=== PATIENT | female | born 1970 | race Caucasian/White ===

== ENCOUNTER 2024-03-29 15:50 | Emergency (ER) | payer OTHER, SELFPAY ==
--- OUTSIDE RECORDS SUMMARY | 2024-03-29 15:52 | XMS_ITS | Clinical Summary ---
Author Organization [facility] Address [place], [place] [address] Care Team Providers Care Physician'S Aide Name Role Phone Alisa Montesinos MD Primary Care Provide r Allergies Active Allergy Reactions Criticality Noted Date Comments Gluten Nausea And Vomiting 07/17/2017 Latex Itching 08/09/2019 Metformin Diarrhea 03/02/2023 Medications multivitamin (MVI) tablet Take 1 Tablet by mouth once daily. 0 1 Active blood-glucose meterIndication s:Type 2 diabetes mellitus without complication, without long-term current use of insulin (HC) Dispense meter, test strips, lancets covered by pt ins. E11.9 NIDDM type II - Test 1 time/day 1 Each 3 Active lancetsIndicati ons:Type 2 diabetes mellitus without complication, without long-term current use of insulin (HC) As directed. Test 1 times per day. 100 Each 3 4 Active blood sugar diagnostic (Blood Glucose Test) stripIndication s:Type 2 diabetes mellitus without complication, without long-term current use of insulin (HC) Test 1 times per day. 100 Each 3 4 Active clobetasol cream 0.05% (TEMOVATE) 0.05 % creamIndication s:Eczema of both external ears Apply topically to affected area(s) two times daily. 45 g 3 4 Active tirzepatide (Mounjaro) 5 mg/0.5 mL penIndications: Type 2 diabetes mellitus without complication, without long-term current use of insulin (HC) Inject 0.5 mL (5 mg) subcutaneous once weekly. 2 mL 11 4 Active tirzepatide (Mounjaro) 2.5 mg/0.5 mL penIndications: Type 2 diabetes mellitus without complication, without long-term current use of insulin (HC) Inject 0.5 mL (2.5 mg) subcutaneous once weekly. 2 mL 4 Active fluocinonide 0.05 TOPICAL (LIDEX) 0.05 % external solutionIndicat ions:Chronic eczema Apply topically to affected area(s) two times daily. 60 mL 3 4 Active clobetasol (TEMOVATE) 0.05 % ointmentIndicat ions:Psoriasis Apply this to any affected areas two times daily for 7 days and as needed for flare-ups 60 g 4 Active Active Problems Problem Noted Date Diagnosed Date Type 2 diabetes mellitus wit hout complication, without long-term current use of insulin 03/09/2022 Eczema of both external ears 03/09/2022 Pterygium eye, left 03/09/2022 HPTH (hyperparathyroidism) 03/09/2022 Cellulitis and abscess of hand 10/23/2020 Cat bite 10/22/2020 Adenomatous colon polyp 05/04/2019 Overview (05/04/2019): Colonoscopy 04/2019 polyp, repeat in 5 years Hepatic steatosis 02/24/2019 Bilateral renal stones 02/24/2019 Overview (02/24/2019): Non obstructive found on CT 02/24/2019 High risk human papilloma virus (HPV) infection of cervix 02/24/2019 Overview (03/09/2019): 02/24/2019 NIL/HPV positive. HPV 16/18- neg Plan: repeat Pap/HPV in 1 year (due 02/2020) Chronic sinusitis 05/23/2016 Celiac sprue 04/23/2015 Menorrhagia with regular cycle 04/05/2015 Iron deficiency anemia, unspecified 01/29/2012 Pre-diabetes 10/18/2008 Cystocele, midline 09/11/2008 Hyperparathyroidism Resolved Problems Problem Noted Date Diagnosed Date Resolved Date Encounter for long-term (cur rent) use of insulin 01/14/2022 01/14/2022 Encounters Date Type Department Care Team Description 01/06/2024 9:20 AM [facility]OSPACE MEDICINE PHYSICIAN Nurse/Clinic Staff Only [facility] [address] [place] [address] Immunization/Injection ; Immunization/Injection 01/06/2024 Travel 01/04/2024 Travel from Last 3 Months Immunizations Name Administration Dates Next Due AMB Influenza, IIV3 (Age >=3 years)(Flu Clinic Only) 12/18/2009 AMB Influenza, IIV4 PF (=>6 mos Flulaval,Fluzone Fluarix)(Flu Clinic Only) 01/07/2019,01/11/2018,01/09/2017, 0 16,01/17/2016,01/11/2015,01/17/2014 COVID-19 vaccine (ForwardMetrics-Bio NTech 30mcg/0.3mL) 12YO+ BIVALENT PF, MDV 01/14/2022 COVID-19 vaccine (Forward[employer]-Bio NTech 30mcg/0.3mL) 12YO+ SELINA-SUCROSE PF, MDV 06/18/2021 COVID-19 vaccine ([employer]-Digital Lumens NTech 30mcg/0.3mL) PF, MDV 10/07/2020,09/11/2020 INFLUENZA, IIV3 PF (AGE >= 6 MO) 01/06/2024 Influenza, IIV3 (Age 6-35 mos) 12/03/2010 Influenza, IIV3 (Age >=3 years) 01/21/20 13,01/15/2012,12/03/2010,12/19/19 10,01/18/2008,01/31/2007,01/19/2006,01/04 Influenza, IIV4 01/07/2023,,01/10/2021,01/04/20 20,01/17/2016,01/11/2015,01/17/2014 Td (Age >=7 Years) 05/31/2000 Tdap 10/18/2020,03/26/2010 Zoster (Shingrix-RZV, recombinant) 11/17/2022, Family History Medical History Relation Name Comments Liver disease Brother younger 4 yr hx alcoholism, unknown specific diagnosis Other Brother younger 4 yr eczema/or psori asis unsure which Cancer Father kidney cancer Heart Disease Father pace maker jaspal teri at 69 Hyperlipidemia Father high choleste rol Asthma Mother age 66 Cancer Mother age 66 at age 66, non-hodgkins lymphoma Celiac disease Mother age 66 Non-Hodgekin Cancer-breast Other Cousin Thyroid Disease Sister younger 8 yr Relation Name Status Comments Brother younger 4 yr Alive Daughter clarissa 2001 Alive Father Alive Mother age 66 age Other Sister younger 8 yr Alive Son lidia 2007 Alive Social History Tobacco Use Types Packs/Day Years Used Date Smoking Tobacco: Former Cigarettes 0.3 31.6 0 03/13/1989 - 10/18/2020 Smokeless Tobacco: Never Tobacco Cessation:Counseling Given: Not Answered Alcohol Use Standard Drinks/Week Comments Not Currently 0 (1 standard drink = 0.6 oz pur e alcohol) occ PHQ-2 Answer Date Recorded PHQ-2 TOTAL SCORE 0 01/14/2022 Social Connections Answer Date Recorded Do you often feel lonely or isolated from those around you? 0 02/28/2023 Financial Resource Strain Answer Date R ecorded Difficulty of Paying Living Expenses 3 02/28/2023 Difficulty of Paying Living Expenses Not on file 02/28/2023 Food Insecurity Answer Date Recorded Do you worry your food will run out before you are able to buy more? 1 02/28/2023 Transportation Needs Answer Date Record ed Does lack of transportation keep you from medica l appointments? 1 02/28/2023 Does lack of transportation keep you from work, meetings or getting things that you need? 1 02/28/2023 Housing Stability Answer Date Recorded What is your housing situation today? 1 02/28/2023 Utilities Answer Date Recorded Do you have trouble paying f or utilities (for example, heat, electricity, water, phone)? 1 02/28/2023 Comments No Sex and Gender Information Value Date Recorded Sex Assigned at Not on file Legal Sex Female 6:22 AM AEROSPACE MEDICINE PHYSICIAN Gender Identity Not on file Sexual Orientation Not on file Occupation Industry Job Start Date Job End Date Not on file Not on file Not on file Not on file Obstetrics History Para Term AB IAB SAB Ectopic Multiple Livin g Live Births 2 2 2 0 0 0 0 0 0 2 2 Date Outcome GA Total Labor Labor/2nd/3rd Weight Sex Type Anes PTL Marga A1 A5 Name Clin Term Living Term Living Last Filed Vital Signs Vital Sign Reading Time Taken Comments Blood Pressure 136/75 08/24/2023 4:29 PM CDT Pulse 82 08/24/2023 4:29 PM CDT Temperature 36.6 C (97.9 F) 03/07/2022 9:35 AM AEROSPACE MEDICINE PHYSICIAN Respiratory Rate 16 03/07/2022 9:35 AM AEROSPACE MEDICINE PHYSICIAN Oxygen Saturation 96% 08/24/2023 4:29 PM CDT Inhaled Oxygen Concentration - - Weight 115.7 kg (255 lb) 08/24/2023 4:29 PM CDT Height 177.2 cm (5' 9.75) 03/02/2023 8:27 AM CS T Body Mass Index 36.85 03/02/2023 8:27 AM AEROSPACE MEDICINE PHYSICIAN Plan of Treatment Upcoming Encounters Date Type Department Care Team (Late st Contact Info) Description 03/30/2024 7:20 AM AEROSPACE MEDICINE PHYSICIAN Ancillary Procedure [facility] [address] [place] [address] 03/30/2024 8:15 AM AEROSPACE MEDICINE PHYSICIAN Office Visit [facility] [address] [place] [address] Alisa Montesinos MD [address] [place] [address] 04/14/2024 8:00 AM AEROSPACE MEDICINE PHYSICIAN Orders Only [address] [address] [place] 05/03/2024 1:30 PM CDT Office Visit [facility] [address] [address] Darby Schuler MD [address] [facility] [address] [place], [place] [address] Health Maintenance Due Date Last Done Comments Hepatitis B series for Diabe chandrika (1 of 3 - 19+ 3-dose series) 1989 Pneumococcal series for age 50+ (1 of 2 - PCV) 1989 Depression screening for age 12+ 01/14/2023 01/14/2022, 12/29/2018, 07/17/2017, Additional history exists COVID-19 vaccine series ( season) 2023 01/14/2022, 06/18/2021, 10/07/2020, Additional history exists BMI (ht and wt on same day) for age 18+ 03/02/2024 03/02/2023, 03/09/2022, 01/14/2022, Additional history exists Mammogram for age 45-75 03/29/2024 03/29/19 24, 03/16/2022, 01/10/2021, Additional history exists Colonoscopy through age 75 05/02/202405/02, 05/03/2019, 05/03/2019 Lipids for age 45-75 02/25/2028 02/24/2023, 01/14/2022, 01/10/2020, Additional history exists Tetanus booster 10/18/2030 10/18/2020, 020 03/2010, 05/31/2000 HIV for age 15-65 Completed 09/15/2006 Pap test for age 21-65 Discontinued , 02/24/2019, 04/05/2015, Additional history exists Tdap Completed 10/18/2020, 03/26/2010 Hepatitis C screening for ag e 18-79 Completed 01/14/2022 Zoster (shingles) series for age 50+ Completed 11/17/2022, 08/13/2022 Influenza for age 50-64 Completed 01/06/20 24, 01/07/2023, 01/14/2022, Additional history exists Procedures Procedure Name Priority Date/Time Associated Diagnosis Comments XR MAMMO BILAT SCREENING Routine 03/29/2023 7:35 AM AEROSPACE MEDICINE PHYSICIAN Visit for screening mammogram LIPID PANEL W REFLEX MEASURED LDL Routine 02/24/2023 7:40 AM AEROSPACE MEDICINE PHYSICIAN Lipid screening ANTI HCV Routine 01/14/2022 9:30 AM AEROSPACE MEDICINE PHYSICIAN Need for hepatitis C screening test COLONOSCOPY DIAGNOSTIC Routine 05/03/2019 9:30 AM CDT LLQ pain Polyp of colon, unspecified part of colon, unspecified type IGNITER CAPPER THIN PREP PAP SCREEN IMAGED Routine 02/24/2019 1:40 PM AEROSPACE MEDICINE PHYSICIAN Cervical cancer screening ANTI HIV 1/2 Routine 09/15/2006 3:43 PM CDT Supervision Of Other Normal from Last 3 Months or Most Recently Relevant to Health Maintenance Results * XR MAMMO BILAT SCREENING (03/29/2023 7:35 AM AEROSPACE MEDICINE PHYSICIAN) Anatomical Region Laterality Modality BREASTS, Breast Left, Breast Right Bilateral Mammography Impressions 03/29/2023 1:35 PM AEROSPACE MEDICINE PHYSICIAN There is no radiographic evidence for malignancy. Recommend annual mammograms. MAMMOGRAM ASSESSMENT: ACR 1 Negative PATIENTS: You will also receive a letter with your examination results in an easy to read format. If you have questions about your results, please contact your referring provider. Narrative 03/29/2023 1:35 PM AEROSPACE MEDICINE PHYSICIAN For Patients: As a result of the Cures Act, medical imaging exams and procedure reports are released immediately into your electronic medical record. You may view this report before your referring provider. If you have questions, please contact your health care provider. XR MAMMO BILAT SCREENING [[id number]] CLINICAL HISTORY: This is an asymptomatic 52 y.o. patient. INDICATION FOR EXAM: Mammogram Screening. TECHNIQUE: CC & MLO views were obtained. This study was evaluated with the assistance of Computer-Aided Detection. COMPARISON FILM: Yes 03/16/22 Novasentis 01/10/21 Novasentis FINDINGS: The breasts have scattered areas of fibroglandular density. There are no dominant masses, suspicious micro calcifications or areas of architectural distortion. us Alisa Montesinos MD MAMMO Final Result * (ABNORMAL) LIPID PANEL W REFLEX MEASURED LDL (02/24/2023 7:40 AM AEROSPACE MEDICINE PHYSICIAN) CHOLESTEROL,TOTAL 199 100 - 199 mg/dL 02/24/2023 1:29 PM AEROSPACE MEDICINE PHYSICIAN [facility] Comment: Cholesterol, Total Reference Ranges Desirable <200 mg/dL Borderline 200-239 mg/dL High >=240 mg/dL TRIGLYCERIDES 167(H) <150 mg/dL 02/24/2023 1:29 PM AEROSPACE MEDICINE PHYSICIAN [facility] HDL CHOLESTEROL 45 >40 mg/dL 1:29 PM AEROSPACE MEDICINE PHYSICIAN [facility] NON-HDL CHOLESTEROL 154(H) <145 mg/dl 02/24/2023 1:29 PM AEROSPACE MEDICINE PHYSICIAN [facility] CHOL/HDL RATIO 4.42 <4.50 02/24/2023 1:29 PM AEROSPACE MEDICINE PHYSICIAN [facility] LDL CHOLESTEROL 121 <=130 mg/dL 02/24/2023 1:29 PM AEROSPACE MEDICINE PHYSICIAN [facility] VLDL CHOLESTEROL 33(H) <=30 mg/dL 02/24/2023 1:29 PM AEROSPACE MEDICINE PHYSICIAN [facility] PROVIDER ORDERED STATUS RANDOM 02/24/2023 1:29 PM AEROSPACE MEDICINE PHYSICIAN [facility] Blood BLOOD SPECIMEN / Unknown Venipuncture / Unknown 02/24/2023 7:40 AM AEROSPACE MEDICINE PHYSICIAN 02/24/2023 7:43 AM AEROSPACE MEDICINE PHYSICIAN us Alisa Montesinos MD CHEMISTRY Final Result [facility] [address] [place] [address], * ANTI HCV (01/14/2022 9:30 AM AEROSPACE MEDICINE PHYSICIAN) HEPATITIS C ANTIBODY Non-React nichole Non-React nichole 01/15/2022 1:59 PM AEROSPACE MEDICINE PHYSICIAN [facility] Comment:Antibodies to HCV no t detected; does not exclude the possibility of exposure to HCV. Blood BLOOD SPECIMEN / Unknown Venipuncture / Unknown 01/14/2022 9:30 AM AEROSPACE MEDICINE PHYSICIAN 01/14/2022 9:35 AM AEROSPACE MEDICINE PHYSICIAN us Ariadna Henry MD SEND OUTS Final Resul t [facility] [address] [place] [address], * COLONOSCOPY DIAGNOSTIC (05/03/2019 9:30 AM CDT) Chandana Middleton MD GI PROCEDURE ORD Final R esult * IGNITER CAPPER THIN PREP PAP SCREEN IMAGED (02/24/2019 1:40 PM AEROSPACE MEDICINE PHYSICIAN) Case Report Gynecologic Cytology Report Case: [id number] Authorizing Provider: Nora Duron MD Collected: 02/24/2019 1340 Ordering Location: [facility] Received: 02/24/2019 1340 Clinic First Screen: Kailee Sanchez Rescreen: Jim Stacy Pathologist: Nataly Hernández MD Specimen: IGNITER CAPPER ThinPrep Vial Screening, Cervical 03/07/2019 4:07 PM AEROSPACE MEDICINE PHYSICIAN [facility] INTERPRETATION/ RESULT NEGATIVE FOR INTRAEPITHELIAL LESION OR MALIGNANCY (NIL) (none) 03/07/2019 4:07 PM AEROSPACE MEDICINE PHYSICIAN [facility] R Endometrial cells in a woman more than 45 years of age. 03/07/2019 4:07 PM AEROSPACE MEDICINE PHYSICIAN [facility] EDUCATIONAL NOTES & SUGGESTIONS Endometrial cells after the age of 45, particularly out of phase or after menopause, may be associated with benign endometrium, hormonal alterations and less commonly with endometrial uterine abnormalities. Endometrial cells correlate with the menstrual history provided. 03/07/2019 4:07 PM AEROSPACE MEDICINE PHYSICIAN [facility] SPECIMEN ADEQUACY Satisfactory for evaluation Endocervical component present 03/07/2019 4:07 PM AEROSPACE MEDICINE PHYSICIAN [facility] HPV REQUEST HPV and PAP 03/07/2019 4:07 PM AEROSPACE MEDICINE PHYSICIAN [facility] Date of LMP 02/21/2019 03/07/2019 4:07 PM AEROSPACE MEDICINE PHYSICIAN [facility] Last Pap Date 04/05/15 03/07/2019 4:07 PM AEROSPACE MEDICINE PHYSICIAN [facility] Last Pap Result NIL 0 4:07 PM AEROSPACE MEDICINE PHYSICIAN [facility] Abnormal Pap or [place] Bx in last 5 years Yes 03/07/2019 4:07 PM AEROSPACE MEDICINE PHYSICIAN [facility] Menstrual Status Irregular Periods 03/07/2019 4:07 PM [facility] [place] Bx Done Today No 03/07/2019 4:07 PM [facility] Additional Information None given 03/07/2019 4:07 PM [facility] Comment: Cytology is screened at [facility] - [address], [place] [address] and [facility] - [address] [place] [address] [place] [address] and [facility] - [address] [place] [address] [facility] - [address], [place] [address] Automated Review Successful 03/07/2019 4:07 PM [facility] Comment:Specimen processed s uccessfully by automated network control supervisor device, ThinPrep Imaging System, [employer] ANCILLARY TESTING IGNITER CAPPER HPV Ordered, Please see separate report 03/07/2019 4:07 PM [facility] Note The pap test is a screening technique, not a diagnostic procedure. It is used primarily to screen for squamous cancers and precursor lesions. Published studies have shown that it is subject to both false negative and false positive results. The pap test should not be used as the sole means to diagnose or exclude pre-malignant and malignant lesions. 03/07/2019 4:07 PM [facility] Other (Cervical) Non-Blood / Unknown 02/24/2019 1:40 PM AEROSPACE MEDICINE PHYSICIAN 02/24/2019 1:40 PM AEROSPACE MEDICINE PHYSICIAN us Nora Duron MD PATHOLOGY/CYTOLOGY Final Re sult [facility] [address] [place] [address], [place] * ANTI HIV 1/2 (09/15/2006 3:43 PM CDT) ANTI HIV 1/2 Non-reacti ve [facility] Blood specimen (specimen) BLOOD SPECIMEN / Unknown 09/15/2006 3:43 PM CDT 09/15/2006 3:37 PM CDT Sue Villalobos [employer] SEND OUTS Final Result [facility] INTERNAL ZIP [address] [address] from Last 3 Months or Most Recently Relevant to Health Maintenance Insurance [place]ES [id number] [employer] [id number] Advance Directives * Full Code (Latest Code Status on File) Date Activated Date Inactivated Comments 10/23/2020 12:03 AM 10/23/2020 1:53 PM Question Answer Comments Code Status Discussion: Discussed * Full Code Date Activated Date Inactivated Comments 08/10/2019 8:30 AM 08/10/2019 5:44 PM Question Answer Comments Code Status Discussion: Discussed Care Teams Physician'S Aide Relationship Specialty Start Date End Date Alisa Montesinos MD [address] [place] [address] PCP - General 09/11/08
[2024-03-29 16:00] VITALS: BP 158/102; PULSE 92; RESP 20; TEMP 37; O2SAT 96; BMI 36.2
--- NOTE | 2024-03-29 16:06 | ED.GENADULT ---
HPI - General Adult General Chief complaint: Head Injury/Pain Stated complaint: Fell backwards at work, hit head, no LOC Time Seen by Provider: 03/29/24 16:03 History of Present Illness HPI narrative: Was loading a semi with a pallet javier, she tripped over the javier. Fell backwards and hit head on floor of semi. No LOC. dazed . Had bloody nose after fall , mild headache , pain to posterior head. Also, pain to left jaw. 53-year-old woman presenting to the emergency department with concern of head injury. Was at work and loading or unloading a semi using a Pallet Javier. The Pallet Javier apparently drifted into her track and behind her underwear and she stumbled back over it falling directly back onto her back and striking her head on the semi floor. Does not believe that she lost consciousness. She was discussed of out of it. A initially little unclear what happened. Has intermediate bloody nose. Does have mild headache with some pain in the back of the head. She does have some pain in the left jaw appears to be surrounding the left TMJ. She did not hit this area. Feels like her teeth do not set quite right. Does not have any significant neck pain. Not really with much back pain either. Initially noted that her hands tingle. Related Data Home Medications ?Medication ?Instructions ?Recorded ?Confirmed multivitamin (Daily Multi-Vitamin 1 tab PO DAILY 03/29/24 03/29/24 tablet) tirzepatide 5 mg/0.5 mL 5 mg subcut 03/29/24 subcutaneous pen injector (Mounjaro) Allergies Allergy/AdvReac Type Severity Reaction Status Date / Time gluten AdvReac Intermediate Intolerant Verified 03/29/24 15:59 latex AdvReac Intermediate Itching Verified 03/29/24 15:59 Review of Systems Status of ROS: Reports: 6 or more systems reviewed and unremarkable except as noted in History and below PFSH [facility] Social History Smoking Status: Never smoker How often do you have a drink containing alcohol: never AUDIT-C Alcohol total score: 0 Non-prescribed substance use: denies use Exam Narrative: Exam Narrative: Pleasant. Has bit of dried blood at the tip of her nose. Cranial nerves 2-12 intact. Pupils 3 mm, briskly responsive and equal. Ears bilaterally without external fluid. Psoriatic plaquing noted around the left ear in particular. She is sore to palpation about the left TMJ and surrounding musculature. No defect or discomfort to palpation along the mandible. Oropharynx otherwise appears unremarkable. He had with some mild swelling in the posterior occiput area presumed area of impact. Psoriasis in the area. Does not have midline neck tenderness. Some soreness to palpation in the paracervical musculature. Not with apparent back tenderness palpation. She is breathing easily. Has no pain palpation of the clavicles or shoulders. Well-perfused peripherally. Moving all extremities without difficulty. Appears to be a little confused but does pretty well with serial sevens. Negative Romberg's. Normal point point hand toe heel. Nasal exam does have some swollen mucosa in the lower aspect of the left nares but no active bleeding. Appears to have blood from the left side. No pain to palpation over the facial bones otherwise. Becomes a little tearful toward the end of our initial exam as we are discussing options for evaluation. Const: Vital Signs, click to edit/add: Vital Signs - 24 hr 03/29/24 16:00 03/29/24 18:28 Temperature 98.6 F 98.5 F Pulse Rate [Pulse Oximeter] 92 78 Respiratory Rate 20 18 Blood Pressure [Ri ght Upper Arm] 158/102 H 146/105 H Pulse Oximetry 96 97 Oxygen Delivery Me thod Room Air Room Air Documenting provider has reviewed patient's vital signs: yes Course Vital Signs Vital signs: Initial Vital Signs Temperature 98.6 F 03/29/24 16:00 Temperature Source Temporal Artery Scan 03/29/24 16:00 Pulse Rate 92 03/29/24 16:00 Respiratory Rate 20 03/29/24 16:00 Blood Pressure 158/102 H 03/29/24 16:00 Blood Pressure Mean 120 H 03/29/24 16:00 Blood Pressure Position Sitting 03/29/24 16:00 Pulse Oximetry 96 03/29/24 16:00 Oxygen Delivery Method Room Air 03/29/24 16:00 Vital Signs Temperature 98.6 F 03/29/24 16:00 Pulse Rate 92 03/29/24 16:00 Respiratory Rate 20 03/29/24 16:00 Blood Pressure 158/102 H 03/29/24 16:00 Pulse Oximetry 96 03/29/24 16:00 Oxygen Delivery Method Room Air 03/29/24 16:00 Temperature 98.5 F 03/29/24 18:28 Pulse Rate 78 03/29/24 18:28 Respiratory Rate 18 03/29/24 18:28 Blood Pressure 146/105 H 03/29/24 18:28 Pulse Oximetry 97 03/29/24 18:28 Oxygen Delivery Method Room Air 03/29/24 18:28 Medications Administered Medications: Discontinued Medications Generic Name Dose Route Start Last Admin Trade Name Torsten PRN Reason Stop Dose Admin Ibuprofen 800 mg 03/29/24 17:15 03/29/24 17:25 Ibuprofen 400 Mg Tablet PO 03/29/24 17:16 800 mg ONCE ONE Administration Medical Decision Making MDM Narrative Medical decision making narrative: She is not on blood thinners. This appears to been quite and impact. This appears to been trip and fall event not cardiogenic. She is concerned about potential costs. By nexus criteria I do not think needs neck scan least noting that her head does not hurt very much at this time and appears mentally clear. I would offer though CT imaging of her head. I think most likely has sustained at least a mild concussion. I think the pain in the left jaw is most likely related to tension or spasm in the left TMJ musculature; may have been a partial subluxation. She did have a little bit of a click on the right which is chronic. Ice pack requested. I did independently review CT imaging. There appears to be a nondisplaced skull fracture at the right occipital area. No adjacent bleed appreciated. Did receive a call from radiologist regarding this imaging. See over-read below INDICATION: Fall with trauma to the back of the head COMPARISON: 03/23/2020 CT TECHNIQUE: CT of the head without contrast. FINDINGS: Brain, ventricles, and extra-axial spaces: No acute intracranial hemorrhage. Wise-white differentiation is grossly preserved. Size of the ventricles and sulci appears to be commensurate with age. There are intracranial vascular calcifications. Bones: Acute nondisplaced fracture of the right occipital bone which extends adjacent to the transverse sinus (). Overall mild paranasal sinus mucosal thickening. Visualized mastoid air cells are clear. IMPRESSION: 1. No acute intracranial hemorrhage. 2. Acute nondisplaced fracture of the right occipital bone which extends adjacent to the transverse sinus. 3. Findings discussed via telephone at 2:56 p.m. [place] standard time March 29, [address] Manning. Headache increasing and after discussion of options given ibuprofen. I did call to [facility] spoke to staff there for further advice. My concern is would other imaging might be necessary or management also considering that there is no current apparent bleeding. Recommendations are for CT venogram which we cannot do this facility and would recommend transfer to [facility]. Concern also of course of further TBI evaluation They were unable to see imaging at that time. Returned to discuss this with Ms. Vieyra. She does have significant time spent at [facility] and has specific coverage there. With this information did place a call to [facility]. While awaiting call back also reporting some crunching in her neck with increasing neck pain. The sound might be transmission from skull fracture? Considering with impact that would have caused skull fracture I think it would be prudent to CT her neck. Spoke to Neurosurgery at [facility]. They are able to review these images. Overall reassured. Highly doubt any vascular injury otherwise. Would not repeat imaging as no bleeding at this time. Monitor symptoms. Not recommending neuro checks but maybe a check-in overnight. Provided no further events, okay for discharge. Will reach out tomorrow. I do independently review these images cervical spine CT. Do not appreciate fracture or unusual alignment. Radiology over-read concurs. Remains otherwise well in the emergency department over time of observation Can take up to 800 mg of ibuprofen or up to 1000 mg of acetaminophen per dose. These can be combined. I did speak with neurosurgery at [facility], Dr. Cardenas. Anticipate them reaching out to you tomorrow to arrange next steps in care/evaluation. They have copies of your images in their system. You may go to sleep. Would have somebody check on you at least once during the night but without a head bleed at this time we feel good about you going home and your brain needs rest. Stay well-hydrated. If a soft collar helps, feel free to wear that over the next week. See handout on some stretches for the upper back as that will likely also be sore. Be seen for marked increase in headache, new focal weakness or discoordination, visual changes, repeated vomiting, unusual somnolence. I am concerned that you have sustained at least a concussion. I would anticipate [facility] evaluating you further for traumatic brain injury/concussion with further recommendations to follow. Signs or symptoms of a concussion might be nausea or headache upon exertion which can also be an indication to back off that level of activity and reassess in a week.? Concussion can also be represented by smoldering nausea or smoldering headache, difficulty with concentration, mood lability, general somnolence, sense of persistent fog or dizziness/lightheadedness.? If these symptoms are becoming apparent and continuing beyond 7-10 days, be re-evaluated for further recommendations, though again I would anticipate this evaluation already occurring with [facility]. Discharge Plan Discharge Clinical Impression: Closed head injury, Occipital bone fracture, Cervical strain, Concussion Patient Disposition: Home w/ Parent or Adult Condition: Stable Additional Instructions: Can take up to 800 mg of ibuprofen or up to 1000 mg of acetaminophen per dose. These can be combined. I did speak with neurosurgery at [facility], Dr. Cardenas. Anticipate them reaching out to you tomorrow to arrange next steps in care/evaluation. They have copies of your images in their system. You may go to sleep. Would have somebody check on you at least once during the night but without a head bleed at this time we feel good about you going home and your brain needs rest. Stay well-hydrated. If a soft collar helps, feel free to wear that over the next week. See handout on some stretches for the upper back as that will likely also be sore. Be seen for marked increase in headache, new focal weakness or discoordination, visual changes, repeated vomiting, unusual somnolence. I am concerned that you have sustained at least a concussion. I would anticipate [facility] evaluating you further for traumatic brain injury/concussion with further recommendations to follow. Signs or symptoms of a concussion might be nausea or headache upon exertion which can also be an indication to back off that level of activity and reassess in a week.? Concussion can also be represented by smoldering nausea or smoldering headache, difficulty with concentration, mood lability, general somnolence, sense of persistent fog or dizziness/lightheadedness.? If these symptoms are becoming apparent and continuing beyond 7-10 days, be re-evaluated for further recommendations, though again I would anticipate this evaluation already occurring with [facility]. Prescriptions: No Action multivitamin [Daily Multi-Vitamin] Tablet 1 tab PO DAILY Mounjaro 5 mg/0.5 mL pen injector 5 mg subcut Follow Up/Referrals: Alisa Montesinos MD [Primary Care Provider] - Stand Alone Forms: [employer] Info Instructions
--- NOTE | 2024-03-29 16:23 | CRLHL7_ITS ---
For Patients: As a result of the Century Cures Act, medical imaging exams and procedure reports are released immediately into your electronic medical record. You may view this report before your referring provider. If you have questions, please contact your health care provider. INDICATION: Fall with trauma to the back of the head COMPARISON: 03/23/2020 CT TECHNIQUE: CT of the head without contrast. FINDINGS: Brain, ventricles, and extra-axial spaces: No acute intracranial hemorrhage. Wise-white differentiation is grossly preserved. Size of the ventricles and sulci appears to be commensurate with age. There are intracranial vascular calcifications. Bones: Acute nondisplaced fracture of the right occipital bone which extends adjacent to the transverse sinus (). Overall mild paranasal sinus mucosal thickening. Visualized mastoid air cells are clear. IMPRESSION: 1. No acute intracranial hemorrhage. 2. Acute nondisplaced fracture of the right occipital bone which extends adjacent to the transverse sinus. 3. Findings discussed via telephone at 2:56 p.m. [place] standard time March 29, [address] Manning. Please note that all CT scans at this facility use dose modulation, iterative reconstruction, and/or weight-based dosing when appropriate to reduce radiation dose to as low as reasonably achievable. Dictated by Yovanny Case MD @ 03/29/2024 4:58:20 PM (Electronically Signed)
--- OUTSIDE RECORDS SUMMARY | 2024-03-29 17:20 | XMS_ITS | Clinical Summary ---
Author Organization [facility] Address [place], [place] [address] Care Team Providers Care Physical Therapy Assistant Name Role Phone Alisa Montesinos MD Primary [...] Department Care Team Description 01/06/2024 9:20 AM CARDIAC SURGEON Nurse/Clinic Staff Only [facility] [address] [place] [address] Immunization/Injection ; Immunization/Injection 01/06/2024 Travel 01/04/2024 Travel from Last 3 Months Immunizations Name Administration Dates Next Due AMB Influenza, IIV3 (Age >=3 years)(Flu Clinic Only) 12/18/2009 AMB Influenza, IIV4 PF (=>6 mos Flulaval,Fluzone Fluarix)(Flu Clinic Only) 01/07/2019,01/11/2018,01/09/2017, 0 16,01/17/2016,01/11/2015,01/17/2014 COVID-19 vaccine ([employer] NTech 30mcg/0.3mL) 12YO+ BIVALENT PF, MDV 01/14/2022 COVID-19 vaccine ([employer] NTech 30mcg/0.3mL) 12YO+ SELINA-SUCROSE PF, MDV 06/18/2021 COVID-19 vaccine ([employer]-Tell NTech 30mcg/0.3mL) PF, MDV 10/07/2020,09/11/2020 INFLUENZA, IIV3 [...] on file Legal Sex Female 6:22 AM CARDIAC SURGEON Gender Identity Not on file Sexual Orientation [...] 36.6 C (97.9 F) 03/07/2022 9:35 AM CARDIAC SURGEON Respiratory Rate 16 03/07/2022 9:35 AM CARDIAC SURGEON Oxygen Saturation 96% 08/24/2023 4:29 PM CDT Inhaled Oxygen Concentration - - Weight 115.7 kg (255 lb) 08/24/2023 4:29 PM CDT Height 177.2 cm (5' 9.75) 03/02/2023 8:27 AM CS T Body Mass Index 36.85 03/02/2023 8:27 AM CARDIAC SURGEON Plan of Treatment Upcoming Encounters Date Type Department Care Team (Late st Contact Info) Description 03/30/2024 7:20 AM CARDIAC SURGEON Ancillary Procedure [facility] [address] [place] [address] 03/30/2024 8:15 AM CARDIAC SURGEON Office Visit [facility] [address] [place] [address] Alisa Montesinos MD [address] [place] [address] 04/14/2024 8:00 AM CARDIAC SURGEON Orders Only [address] [address] [place], [place] 05/03/2024 1:30 PM CDT Office Visit [facility] [address] [id number] Darby Schuler MD [address] [facility] [address] [place], [place] [address] Health Maintenance Due Date Last Done Comments [...] MAMMO BILAT SCREENING Routine 03/29/2023 7:35 AM CARDIAC SURGEON Visit for screening mammogram LIPID PANEL W REFLEX MEASURED LDL Routine 02/24/2023 7:40 AM CARDIAC SURGEON Lipid screening ANTI HCV Routine 01/14/2022 9:30 AM CARDIAC SURGEON Need for hepatitis C screening test COLONOSCOPY DIAGNOSTIC Routine 05/03/2019 9:30 AM CDT LLQ pain Polyp of colon, unspecified part of colon, unspecified type JANITORIAL MANAGER THIN PREP PAP SCREEN IMAGED Routine 02/24/2019 1:40 PM CARDIAC SURGEON Cervical cancer screening ANTI HIV 1/2 Routine 09/15/2006 3:43 PM CDT Supervision Of Other Normal from Last 3 Months or Most Recently Relevant to Health Maintenance Results * XR MAMMO BILAT SCREENING (03/29/2023 7:35 AM CARDIAC SURGEON) Anatomical Region Laterality Modality BREASTS, Breast Left, Breast Right Bilateral Mammography Impressions 03/29/2023 1:35 PM CARDIAC SURGEON There is no radiographic evidence for malignancy. Recommend annual mammograms. MAMMOGRAM ASSESSMENT: ACR 1 Negative PATIENTS: You will also receive a letter with your examination results in an easy to read format. If you have questions about your results, please contact your referring provider. Narrative 03/29/2023 1:35 PM CARDIAC SURGEON For Patients: As a result of the Cures Act, medical imaging exams and procedure reports are released immediately into your electronic medical record. You may view this report before your referring provider. If you have questions, please contact your health care provider. XR MAMMO BILAT SCREENING [[id number]] CLINICAL HISTORY: This is an asymptomatic 52 y.o. patient. INDICATION FOR EXAM: Mammogram Screening. TECHNIQUE: CC & MLO views were obtained. This study was evaluated with the assistance of Computer-Aided Detection. COMPARISON FILM: Yes 03/16/22 Photometics 01/10/21 [employer]ics FINDINGS: The breasts have scattered areas of fibroglandular density. There are no dominant masses, suspicious micro calcifications or areas of architectural distortion. us Alisa Montesinos MD MAMMO Final Result * (ABNORMAL) LIPID PANEL W REFLEX MEASURED LDL (02/24/2023 7:40 AM CARDIAC SURGEON) CHOLESTEROL,TOTAL 199 100 - 199 mg/dL 02/24/2023 1:29 PM CARDIAC SURGEON [facility] Comment: Cholesterol, Total Reference Ranges Desirable <200 mg/dL Borderline 200-239 mg/dL High >=240 mg/dL TRIGLYCERIDES 167(H) <150 mg/dL 02/24/2023 1:29 PM CARDIAC SURGEON [facility] HDL CHOLESTEROL 45 >40 mg/dL 1:29 PM CARDIAC SURGEON [facility] NON-HDL CHOLESTEROL 154(H) <145 mg/dl 02/24/2023 1:29 PM CARDIAC SURGEON [facility] CHOL/HDL RATIO 4.42 <4.50 02/24/2023 1:29 PM CARDIAC SURGEON [facility] LDL CHOLESTEROL 121 <=130 mg/dL 02/24/2023 1:29 PM CARDIAC SURGEON [facility] VLDL CHOLESTEROL 33(H) <=30 mg/dL 02/24/2023 1:29 PM CARDIAC SURGEON [facility] PROVIDER ORDERED STATUS RANDOM 02/24/2023 1:29 PM CARDIAC SURGEON [facility] Blood BLOOD SPECIMEN / Unknown Venipuncture / Unknown 02/24/2023 7:40 AM CARDIAC SURGEON 02/24/2023 7:43 AM CARDIAC SURGEON us Alisa Montesinos MD CHEMISTRY Final Result [facility] [address] [place] [address], * ANTI HCV (01/14/2022 9:30 AM CARDIAC SURGEON) HEPATITIS C ANTIBODY Non-React nichole Non-React nichole 01/15/2022 1:59 PM CARDIAC SURGEON [facility] Comment:Antibodies to HCV no t detected; does not exclude the possibility of exposure to HCV. Blood BLOOD SPECIMEN / Unknown Venipuncture / Unknown 01/14/2022 9:30 AM CARDIAC SURGEON 01/14/2022 9:35 AM CARDIAC SURGEON us Ariadna Herny MD SEND OUTS Final Resul t [facility] [address] [place] [address], * COLONOSCOPY DIAGNOSTIC (05/03/2019 9:30 AM CDT) Chandana Middleton MD GI PROCEDURE ORD Final R esult * JANITORIAL MANAGER THIN PREP PAP SCREEN IMAGED (02/24/2019 1:40 PM CARDIAC SURGEON) Case Report Gynecologic Cytology Report Case: [id number] Authorizing Provider: Nora Duron MD Collected: 02/24/2019 1340 Ordering Location: [facility] Received: 02/24/2019 1340 Clinic First Screen: Kailee Sanchez Rescreen: Jim Stacy Pathologist: Nataly Hernández MD Specimen: JANITORIAL MANAGER ThinPrep Vial Screening, Cervical 03/07/2019 4:07 PM CARDIAC SURGEON [facility] INTERPRETATION/ RESULT NEGATIVE FOR INTRAEPITHELIAL LESION OR MALIGNANCY (NIL) (none) 03/07/2019 4:07 PM CARDIAC SURGEON [facility] R Endometrial cells in a woman more than 45 years of age. 03/07/2019 4:07 PM CARDIAC SURGEON [facility] EDUCATIONAL NOTES & SUGGESTIONS Endometrial cells after the age of 45, particularly out of phase or after menopause, may be associated with benign endometrium, hormonal alterations and less commonly with endometrial uterine abnormalities. Endometrial cells correlate with the menstrual history provided. 03/07/2019 4:07 PM CARDIAC SURGEON [facility] SPECIMEN ADEQUACY Satisfactory for evaluation Endocervical component present 03/07/2019 4:07 PM CARDIAC SURGEON [facility] HPV REQUEST HPV and PAP 03/07/2019 4:07 PM CARDIAC SURGEON [facility] Date of LMP 02/21/2019 03/07/2019 4:07 PM CARDIAC SURGEON [facility] Last Pap Date 04/05/15 03/07/2019 4:07 PM CARDIAC SURGEON [facility] Last Pap Result NIL 0 4:07 PM CARDIAC SURGEON [facility] Abnormal Pap or [place] Bx in last 5 years Yes 03/07/2019 4:07 PM CARDIAC SURGEON [facility] Menstrual Status Irregular Periods 03/07/2019 4:07 PM [facility] [place] Bx Done Today No 03/07/2019 4:07 PM [facility] Additional Information None given 03/07/2019 4:07 PM [facility] Comment: Cytology is screened at [facility] - [address], [place] [address] and [facility] - [address] [place] [address], [place] [address] and [facility] - [address] [place] [address] Interpreted at [facility] - [address], [place] [address] Automated Review Successful 03/07/2019 4:07 PM [facility] Comment:Specimen processed s uccessfully by automated urologic surgeon device, ThinPrep Imaging System, [employer] ANCILLARY TESTING JANITORIAL MANAGER HPV Ordered, Please see separate report 03/07/2019 4:07 PM [facility] Note The pap test is a screening technique, not a diagnostic procedure. It is used primarily to screen for squamous cancers and precursor lesions. Published studies have shown that it is subject to both false negative and false positive results. The pap test should not be used as the sole means to diagnose or exclude pre-malignant and malignant lesions. 03/07/2019 4:07 PM [facility] Other (Cervical) Non-Blood / Unknown 02/24/2019 1:40 PM CARDIAC SURGEON 02/24/2019 1:40 PM CARDIAC SURGEON us Nora Duron MD PATHOLOGY/CYTOLOGY Final Re sult [facility] [address] [place] [address], [place] * ANTI HIV 1/2 (09/15/2006 3:43 PM CDT) ANTI HIV 1/2 Non-reacti ve [facility] Blood specimen (specimen) BLOOD SPECIMEN / Unknown 09/15/2006 3:43 PM CDT 09/15/2006 3:37 PM CDT Sue Villalobos AROMATHERAPIST SEND OUTS Final Result [facility] INTERNAL ZIP [id number] [address] from Last 3 Months or Most Recently Relevant to Health Maintenance Insurance [place] [id number] [employer] [place] [address] Advance Directives * Full Code (Latest Code Status on File) Date Activated Date Inactivated Comments 10/23/2020 12:03 AM 10/23/2020 1:53 PM Question Answer Comments Code Status Discussion: Discussed * Full Code Date Activated Date Inactivated Comments 08/10/2019 8:30 AM 08/10/2019 5:44 PM Question Answer Comments Code Status Discussion: Discussed Care Teams Physical Therapy Assistant Relationship Specialty Start Date End Date Alisa Montesinos MD [address] [place] [address] PCP - General 09/11/08
[2024-03-29] MEDS: IBUPROFEN 400 MG TABLET 800 MG PO (17:25)
[2024-03-29 18:28] VITALS: BP 146/105; PULSE 78; RESP 18; TEMP 36.9; O2SAT 97
== END 2024-03-29 19:34 | disposition home or self-care (01) ==
PROVIDERS: Emergency Provider Family Medicine; PCP Family Medicine
DX: S02.119A Unspecified fracture of occiput, initial encounter for closed fracture (principal); W18.09XA Striking against other object with subsequent fall, initial encounter; Y99.0 Civilian activity done for income or pay; S16.1XXA Strain of muscle, fascia and tendon at neck level, initial encounter
CPT/HCPCS: 70450; 72125; 99284; A9270

== ENCOUNTER 2024-08-24 10:45 | Outpatient (RCR) | payer OTHER, SELFPAY | END 2024-10-24 09:05 | disposition home or self-care (01) | PROVIDERS: PCP Family Medicine; Visit Provider Family Medicine | DX: S06.0X0D Concussion without loss of consciousness, subsequent encounter (principal); S02.119D Unspecified fracture of occiput, subsequent encounter for fracture with routine healing; M26.69 Other specified disorders of temporomandibular joint; M54.2 Cervicalgia; H51.11 Convergence insufficiency; G44.329 Chronic post-traumatic headache, not intractable; H81.90 Unspecified disorder of vestibular function, unspecified ear; G90.9 Disorder of the autonomic nervous system, unspecified; R41.840 Attention and concentration deficit; Y99.0 Civilian activity done for income or pay; Z51.89 Encounter for other specified aftercare | CPT/HCPCS: 97110; 97140; 97162; 97163; 97166; 97530; 97535 ==